=== PATIENT | female | born 1960 | race Caucasian/White ===

== ENCOUNTER 2021-06-04 12:12 | Observation (INO) ==
[2021-06-04] MEDS ORDERED: *HR* Heparin 5,000 UNIT/ML VIAL IVP PRN ×2 (15:34)
[2021-06-04] MEDS ORDERED: Naloxone 0.4 MG/ML INJ IVP PRN (15:34)
[2021-06-04] MEDS ORDERED: Acetaminophen 325 MG TABLET PO PRN (15:34)
[2021-06-04] MEDS ORDERED: Melatonin 3 MG TABLET PO PRN (15:34)
[2021-06-04] MEDS ORDERED: *HR* Heparin 5,000 UNIT/ML VIAL IVP ONE (15:34)
[2021-06-04] MEDS ORDERED: Perflutren Lipid Microsphere 1.3 ML in 0.9 % Sodium Chloride 8.7 ML IVP PRN (16:10)
[2021-06-04] MEDS ORDERED: Nitroglycerin 1 INCH/GM PACKET TP ONE (16:11)
[2021-06-04] MEDS: carvediloL 6.25 MG TABLET PO SCH (16:58)
[2021-06-04] MEDS: Heparin 25,000UNIT/250ML 1/2NS 25,000 UNIT/250 ML IV.SOLN IVC SCH (16:59)
[2021-06-04] MEDS ORDERED: Ipratropium/Albuterol Neb 3 ML IH PRN (20:39)
[2021-06-04] MEDS: GuaiFENesin Liq 200 MG/10 ML UDC PO PRN (22:09)
[2021-06-05 06:58] VITALS: TEMP 97.6
[2021-06-05 07:47] LABS: Basophils # 0.1 K/mcL (0.0-0.2); Basophils % 1.9 %; Eosinophils # 0.4 K/mcL (0.0-0.6); Eosinophils % 6.2 %; Hematocrit 39.3 % (35.3-44.9); Hemoglobin 12.7 g/dL (11.5-15.4); Immature Granulocytes % 3.3 % (0-4); Lymphocytes # 1.4 K/mcL (0.6-4.6); Mean Corpuscular HGB Conc 32.3 g/dL (31.6-35.5); Mean Corpuscular Volume 89.7 fL (83.0-100.0); Mean Platelet Volume 10.6 fL (9.4-12.4); Monocytes # 0.5 K/mcL (0.0-1.3); Monocytes % 7.5 %; Neutrophils # 3.8 K/mcL (1.6-8.9); Platelet Count 397 K/mcL (140-400); Red Blood Count 4.38 M/mcL (3.82-4.97); Red Cell Distribution Width 14.2 % (11.5-14.5); Segmented Neutrophils % 59.1 %; White Blood Count 6.4 K/mcL (4.3-11.1)
[2021-06-05 08:24] LABS: Estimated Average Glucose 117 mg/dl; Hemoglobin A1C 5.7 %
[2021-06-05] MEDS: carvediloL 6.25 MG TABLET PO SCH (08:36)
[2021-06-05 08:44] LABS: Alanine Aminotransferase 38 Units/L (7-52); Albumin 3.7 g/dL (3.5-5.7); Albumin/Globulin Ratio 1.9 (1.1-2.2); Alkaline Phosphatase 84 Units/L (34-104); Aspartate Amino Transferase 23 Units/L (13-39); BUN/Creatinine Ratio 23 (6-26); Bilirubin,Total 0.4 mg/dL (0.3-1.0); Blood Urea Nitrogen 15 mg/dL (8-23); Calcium 8.7 mg/dL (8.6-10.3); Carbon Dioxide 27 mEq/L (23-29); Chloride 109 mEq/L (98-107); Globulin 1.9 g/dL (2.4-3.5); Glucose 98 mg/dL (70-105); Osmolality,Calculated 287 (280-300); Potassium 3.7 mEq/L (3.5-5.1); Sodium 138 mEq/L (136-145); Total Protein 5.6 g/dL (6.4-8.9); Troponin I 0.12 ng/mL (< 0.04); eGFR For African Americans > 60 (> 60); eGFR For Non-African Americans > 60 (> 60)
[2021-06-05] MEDS ORDERED: Aspirin 81 MG TAB.CHEW PO SCH (09:00)
[2021-06-05] MEDS ORDERED: Furosemide 20 MG/2 ML VIAL IVP SCH (09:00)
[2021-06-05] MEDS ORDERED: *HR* Heparin 10,000 UNIT/10 ML VIAL ONE (10:40)
[2021-06-05] MEDS ORDERED: ISOVUE-370 200 ML INFUS..BTL ONE (10:40)
[2021-06-05] MEDS ORDERED: 0.9 % Sodium Chloride 2,000 ML ONE (10:40)
[2021-06-05] MEDS ORDERED: Nitroglycerin 1,000 MCG/5 ML VIAL IV ONE (10:40)
[2021-06-05] MEDS ORDERED: Heparin 1,000 UNITS/500 mL 500 ML ONE (10:40)
[2021-06-05] MEDS: GuaiFENesin Liq 200 MG/10 ML UDC PO PRN (10:45)
[2021-06-05] MEDS ORDERED: *HR* FentaNYL (PF) 100 MCG/2 ML VIAL ONE (10:53)
[2021-06-05] MEDS ORDERED: *HR* Midazolam HCl 2 MG/2 ML VIAL ONE (10:54)
[2021-06-05] MEDS ORDERED: Ondansetron 4 MG/2 ML VIAL ONE (11:05)
[2021-06-05 12:37] VITALS: PULSE 85
[2021-06-05] MEDS ORDERED: lisinopriL 5 MG TABLET PO SCH (13:00)
[2021-06-05 13:09] VITALS: O2SAT 95
[2021-06-05] MEDS: Heparin 25,000UNIT/250ML 1/2NS 25,000 UNIT/250 ML IV.SOLN IVC SCH (13:12)
[2021-06-05 15:07] VITALS: BP 136/89
== END 2021-06-05 15:53 | disposition home or self-care (01) ==
LOC: 3BNU → SUATTDRO 14:47
PROVIDERS: ADMIT Family Medicine; ATTEND Internal Medicine